=== PATIENT | male | born 1945 | race Caucasian/White ===

== ENCOUNTER 2019-03-23 15:29 | Observation (INO) | payer MEDICARE ==
[~2019-03-23 15:29] MED LIST: ISOVUE-370 76%-LOCM 1 ML ONE
[2019-03-23] MEDS ORDERED: Nitroglycerin 2% Ointment 1 INCH/1 GM Packet ONE (15:51)
[2019-03-23] MEDS ORDERED: Fentanyl 100 MCG/2 ML VIAL ONE (15:52)
[2019-03-23 15:59] LABS: #Basophils 0.1 thou/uL (0.0-0.2); #Eosinphils 0.1 thou/uL (0.0-0.7); #Lymphocytes 1.9 thou/uL (1.20-3.40); #Monocytes 1.1 thou/uL (0.11-0.59); #Neutrophils 7.8 thou/uL (1.40-6.50); %Basophils 0.7 % (0.0-1.0); %Eosinophils 0.9 % (0.0-10.0); %Lymphocytes 17.2 % (21.0-51.0); %Monocytes 10.2 % (0.0-10.0); Hemoglobin 15.1 g/dL (14.0-18.0); Mean Corpuscular HGB CONC 34.2 g/dL (32.0-36.0); Mean Corpuscular Hemoglobin 32.5 pg (27.0-31.0); Mean Corpuscular Volume 95.2 fL (78.0-98.0); Mean Platelet Volume 8.4 fL (7.4-10.4); Platelet Count 219 thou/uL (130-400); RBC Distribution Width 11.3 % (11.5-14.5); Red Blood Cell (RBC) Count 4.64 mill/uL (4.70-6.10); White Blood Cell (WBC) Count 10.9 thou/uL (4.8-10.8)
--- NOTE | 2019-03-23 16:15 | RAD ---
Exam: Chest one view HISTORY:Chest pain Comparison: 07/07/2017 FINDINGS: Lungs: Mild interstitial prominence bilaterally. Superimposed left patchy basilar density. Stable granulomatous cascaded, lateral left mid to lower lung zone. Cardiac silhouette:Stable postoperative appearance Pulmonary vessels: Normal Pleural Spaces: Clear Pneumothorax: None Osseous abnormalities: None of acuity. IMPRESSION: Postoperative chest with bilateral interstitial prominence that could relate to edema or interstitial lung disease. Recommend clinical correlation, and as necessary imaging follow-up may be obtained.
[2019-03-23 16:21] LABS: ALT (SGPT) 9 U/L (8-55); AST (SGOT) 15 U/L (5-34); Albumin 4.2 g/dL (3.4-4.8); Alkaline Phosphatase 88 U/L (40-110); Anion Gap 12 mmol/L (10-20); BUN (Urea Nitrogen) 16 mg/dL (8.4-25.7); Bilirubin, Total 0.8 mg/dL (0.2-1.2); CK (CPK) 30 U/L (30-200); Calc. Creatinine Clearance 0 mL/min (70-130); Calcium 9.9 mg/dL (7.8-10.44); Carbon Dioxide 25 mmol/L (23-31); Chloride 101 mmol/L (98-107); Estimated GFR-MDRD 79; Globulin 3.6 g/dL (2.4-3.5); Glucose 115 mg/dL (83-110); Lipase 13 U/L (8-78); Protein, Total 7.8 g/dL (5.8-8.1); Sodium 134 mmol/L (136-145)
--- NOTE | 2019-03-23 17:15 | CT ---
CT CHEST AND ABDOMEN FOLLOWING AORTOGRAM PROTOCOL WITH CONTRAST: 03/23/19 Axial tomograms obtained with multiplanar reconstruction and 3D postprocessing. Aorta is imaged from the aortic arch through the aortic bifurcation with angio protocol. INDICATIONS: Assess for aortic dissection or aneurysm. Abdominal pain and chest pain. FINDINGS: Thoracic aorta shows atherosclerotic calcification. The ascending aorta is upper normal at 3.5 cm. De scending thoracic aorta mildly ectatic measured at 2.6 cm. There is no evidence of dissection. Abdominal aorta shows atherosclerotic changes with calcification and mild soft plaque in the peripher y. Mild ectasia. The distal abdominal aorta just above the bifurcation measures approximately 2.2 cm. There is no evidence of dissection. There is stenosis at the origin of the celiac artery considered mild by NASCET criteria. There is calcification and evidence of significant stenosis at the origin of the superior mesenteric artery. This degree of stenosis appears greater than 50% and is hemodynamically significant by NASCET criteria. Superior mesenteric artery trunk is opacified. Atherosclerotic calcification seen at the origin of both renal arteries. Mild stenosis at the origin of both renal arteries by NASCET criteria. Aortic bifurcation is patent. Dense calcification is seen in both proximal iliac arteries. No signifi cant stenosis. The lungs show chronic parenchymal change with evidence of early emphysematous change. There is a piyush cified nodule measuring 1.0 cm which is pleural based peripheral left lower lobe. Mediastinum is othe rwise unremarkable. Images through the upper abdomen show unremarkable appearing liver, spleen, and pancreas. The pancrea tic duct is mildly prominent. No pancreatic mass identified. Adrenal glands and kidneys unremarkable. Bowel loops unremarkable as visualized. Degenerative spine c hanges are seen. IMPRESSION: 1. No evidence of thoracic or abdominal aortic dissection. There are atherosclerotic changes as described. 2. Evidence of significant stenosis at the origin of the superior mesenteric artery as described . POS: TPC
[2019-03-23] MEDS ORDERED: Aspirin Chewable 81 MG TAB ONE (17:43)
[2019-03-23] MEDS ORDERED: Ondansetron ODT 4 MG TAB PO PRN (18:42)
[2019-03-23] MEDS ORDERED: Acetaminophen 650 MG Suppository PR PRN (18:42)
[2019-03-23] MEDS ORDERED: Ondansetron PF 4 MG/2 ML Vial IVP PRN (18:42)
[2019-03-23] MEDS ORDERED: Lorazepam 0.5 MG TAB PO PRN (18:48)
--- NOTE | 2019-03-23 18:57 | PDOC.HHP ---
Hospitalist HPI - History of Present Illness left shoulder and chest pain History of Present Illness: Mr. Harman is a 73 year old man who presents with complaints of chest pressure, left shoulder pain and difficulty breathing. He states he first began to have pain on the right lower back earlier today and then it started to radiate up his back. Denies any trauma or injuries. States the pain is now most intense in his left shoulder blade region. He reports feeling stressed and states he has quit smoking and drinking liquor as of two weeks ago. He has been drinking beer over the weekend while watching sports. States the reason he stopped smoking is due to burning sensation in his chest when he does. He has had a cough productive for white sputum, no hemoptysis. No recent fevers or chills. Patient states his BP was elevated, usually does not come down below 170s systolic. He states he started to have pressure in his chest and reports increased discomfort with deep inspiration. He is unsure what time this started. ED Course: He was initially seen in the ED at [facility] and underwent a CT dissection scan due to elevated d-dimer of 2.66, which demonstrated significant stenosis of the SMA. Labs notable for BNP of 251.1 and initial troponin negative. LFTs normal as well as lipase. CK was 30. Chest xray done showed postoperative chest with bilateral insterstitial prominence representing edema or interstitial lung disease. WCC was 10.9, Hgb 15.1, Hct 44.2, Platelets 219. Hospitalist ROS - Review of Systems Constitutional: denies: fever, chills, sweats, weakness, malaise, other Eyes: denies: pain, vision change, conjunctivae inflammation, eyelid inflammation, redness, other ENT: denies: ear pain, ear discharge, nose pain, nose discharge, nose congestion , mouth pain, mouth swelling, throat pain, throat swelling, other Respiratory: reports: cough, shortness of breath Cardiovascular: reports: chest pain Gastrointestinal: denies: nausea, vomiting, abdominal pain, diarrhea, constipation, melena, hematochezia, other Genitourinary: denies: dysuria, frequency, incontinence, hematuria, retention, other Musculoskeletal: reports: shoulder pain (left shoulder blade), back pain. denies: neck pain, arm pain, hand pain, leg pain, foot pain Skin: denies: rash, lesions, shahana, bruising, other Neurological: denies: weakness, numbness, incoordination, change in speech, confusion, seizures, other Hospitalist History - Past Medical History Source: patient Cardiac: reports: CAD, HTN, AR Pulmonary: reports: CVA/TIA/stroke, COPD - Past Surgical History Past Surgical History: reports: CABG, Other (Carotid endarterectomy) - Social History Smoking Status: Smoker, status unknown Alcohol: reports: Heavy Drugs: reports: none Living Situation: Alone - Exam General Appearance: NAD (He does appear anxious and fidgeting) Eye: PERRL, anicteric sclera ENT: normocephalic atraumatic, no oropharyngeal lesions Neck: supple, symmetric, no JVD, no thyromegaly, no lymphadenopathy Heart: RRR, no murmur, no gallops, no rubs Respiratory: CTAB, no wheezes, no rales, no ronchi, normal chest expansion, no tachypnea Gastrointestinal: soft, non-tender, non-distended, normal bowel sounds, no palpable masses, no hepatomegaly Extremities: no cyanosis, no clubbing, no edema Skin: normal turgor, no lesions, no rashes Neurological: cranial nerve grossly intact, normal sensation to touch Musculoskeletal: normal tone, normal strength, no muscle wasting Musculoskeletal - other findings: Tenderness to posterior neck and left shoulder , denies trauma Psychiatric: A&O x 3 (Restless and appears anxious) Hospitalist Results - Labs Result Diagrams: 03/23/19 15:49 03/23/19 15:49 Lab results: WBC 10.9 thou/uL (4.8-10.8) H 03/23/19 15:49 Hgb 15.1 g/dL (14.0-18.0) 03/23/19 15:49 Hct 44.2 % (42.0-52.0) 03/23/19 15:49 MCV 95.2 fL (78.0-98.0) 03/23/19 15:49 Plt Count 219 thou/uL (130-400) 03/23/19 15:49 Neutrophils % 71.0 % (42.0-75.0) 03/23/19 15:49 Sodium 134 mmol/L (136-145) L 03/23/19 15:49 Potassium 4.0 mmol/L (3.5-5.1) 03/23/19 15:49 Chloride 101 mmol/L (98-107) 03/23/19 15:49 Carbon Dioxide 25 mmol/L (23-31) 03/23/19 15:49 BUN 16 mg/dL (8.4-25.7) 03/23/19 15:49 Creatinine 0.94 mg/dL (0.7-1.3) 03/23/19 15:49 Glucose 115 mg/dL (83-110) H 03/23/19 15:49 Calcium 9.9 mg/dL (7.8-10.44) 03/23/19 15:49 Total Bilirubin 0.8 mg/dL (0.2-1.2) 03/23/19 15:49 AST 15 U/L (5-34) 03/23/19 15:49 ALT 9 U/L (8-55) 03/23/19 15:49 Alkaline Phosphatase 88 U/L (40-110) 03/23/19 15:49 Creatine Kinase 30 U/L (30-200) 03/23/19 15:49 Troponin I Less than 0.010 ng/mL (< 0.028) 03/23/19 15:49 B-Natriuretic Peptide 251.1 pg/mL (0-100) H 03/23/19 15:49 Serum Total Protein 7.8 g/dL (5.8-8.1) 03/23/19 15:49 Albumin 4.2 g/dL (3.4-4.8) 03/23/19 15:49 Lipase 13 U/L (8-78) 03/23/19 15:49 - Radiology Interpretation Chest x-ray Status: report reviewed by vt Hospitalist H&P A/P - Problem (1) Chest pain Code(s): R07.9 - CHEST PAIN, UNSPECIFIED Status: Acute (2) Back pain Code(s): M54.9 - DORSALGIA, UNSPECIFIED Status: Acute (3) CAD (coronary artery disease) Code(s): I25.10 - ATHSCL HEART DISEASE OF [place] CORONARY ARTERY W/O ANG PCTRS Status: Chronic (4) COPD (chronic obstructive pulmonary disease) Status: Chronic (5) HTN (hypertension) Code(s): I10 - ESSENTIAL (PRIMARY) HYPERTENSION Status: Chronic Qualifiers: Hypertension type: essential hypertension Qualified Code(s): I10 - Essential (primary) hypertension - Plan Plan: Continue to trend troponins. Will need continuous cardiac monitoring. Elevated d-dimer. Has had contrast for CT dissection done earlier today. Will obtain VQ scan to avoid further contrast and subsequent kidney injury. Consult placed to CV surgery re: SMA stenosis, significant. Consult placed to Palliative care to discuss advanced directives. BNP slightly elevated, last echo was several years ago. Will obtain repeat given SOB. Continue to monitor O2 sats. Monitor BP and resume home meds once verified. Code status unknown at this present time. Patient agreeable to be seen by Palliative Care. Surrogate decision maker: Shraddha Harman, his daugther. Case discussed with Dr. Cruz who agrees with plans as above.
[2019-03-23 19:30] VITALS: BMI 19.4
[2019-03-23 19:58] LABS: Lactic Acid 0.9 mmol/L (0.5-2.2)
[2019-03-23 20:06] LABS: Troponin I 0.025 ng/mL (< 0.028)
[2019-03-23] MEDS ORDERED: Melatonin 3 MG TAB PO PRN (20:21)
--- NOTE | 2019-03-23 20:51 | NM ---
EXAM: NM Lung Vent Perf Imaging PROVIDED CLINICAL HISTORY: Shortness of breath and pleuritic chest pain. Elevated d-dimer. COMPARISON: None FINDINGS: The patient was unable to perform the ventilation portion of the study. As a result, no ventilation i mages were obtained. Only perfusion imaging is performed. There is generalized heterogeneity of uptake of radiotracer seen throughout the lungs bilaterally whi ch is an overall symmetric finding. However, this does limit evaluation for perfusion defects. There is suggestion of a subsegmental defect present at the left lung base with question of additiona l small subsegmental defects bilaterally. However, given the overall heterogeneity and absence of the ventilation portion of the study, this examination is overall indeterminate. IMPRESSION: Indeterminate perfusion imaging as described above. CT angiogram thorax would be helpful for further evaluation if this is able to be performed.
[2019-03-23] MEDS: Acetaminophen 325 MG TAB PO PRN (20:53)
[2019-03-23] MEDS: Famotidine/PF 20 mg/2ml Vial SLOW IVP SCH (20:54)
[2019-03-23] MEDS ORDERED: Lidocaine 5% Patch TD SCH (21:00)
[2019-03-23 22:09] LABS: Bacteria/HPF None Seen HPF (None Seen); Bilirubin Negative (Negative); Blood, Urine Negative (Negative); Clarity Clear (Clear); Glucose, Urine (Dipstick) Normal (Negative); Leukocyte Negative Leu/uL (Negative); Nitrite Negative (Negative); Protein, Urine (Dipstick) 70 mg/dL (Neg-Trace); RBC/HPF 0-3 HPF (0-3); Squamous Epithelial 0-3 HPF (0-3)
[2019-03-23 22:11] LABS: Urine Culture Reflex Yes Yes
[2019-03-23 22:25] LABS: Amphetamine Detected (NotDetected); Barbiturates Screen Not Detected (NotDetected); Benzodiazepine Screen Detected (NotDetected); Cocaine Metabolite Screen Not Detected (NotDetected); Medtox Control Line Valid? VALID (VALID); Medtox Reader # READER 1; Methadone Not Detected (NotDetected); Methamphetamine Not Detected (NotDetected); Opiate Screen Not Detected (NotDetected); Oxycodone Screen Not Detected (NotDetected); Phencyclidine (PCP) Not Detected (NotDetected); THC/Cannabinoid Screen Detected (NotDetected); Tricyclic Screen Not Detected (NotDetected)
[2019-03-23 22:53] LABS: Troponin I 0.018 ng/mL (< 0.028)
[2019-03-24] MEDS: hydrALAZINE 20 MG/ML VIAL SLOW IVP PRN ×2 (03:17→11:44)
[2019-03-24 05:20] LABS: #Basophils 0.1 thou/uL (0.0-0.2); #Eosinphils 0.2 thou/uL (0.0-0.7); #Lymphocytes 2.2 thou/uL (1.20-3.40); #Monocytes 0.9 thou/uL (0.11-0.59); #Neutrophils 4.3 thou/uL (1.40-6.50); %Basophils 1.3 % (0.0-1.0); %Eosinophils 2.6 % (0.0-10.0); %Lymphocytes 29.3 % (21.0-51.0); %Monocytes 11.2 % (0.0-10.0); %Neutrophils 55.6 % (42.0-75.0); Hemoglobin 13.3 g/dL (14.0-18.0); Mean Corpuscular HGB CONC 33.9 g/dL (32.0-36.0); Mean Corpuscular Hemoglobin 32.6 pg (27.0-31.0); Mean Platelet Volume 8.7 fL (7.4-10.4); Platelet Count 197 thou/uL (130-400); RBC Distribution Width 11.5 % (11.5-14.5); Red Blood Cell (RBC) Count 4.07 mill/uL (4.70-6.10); White Blood Cell (WBC) Count 7.7 thou/uL (4.8-10.8)
[2019-03-24 05:33] LABS: Anion Gap 11 mmol/L (10-20); BUN (Urea Nitrogen) 24 mg/dL (8.4-25.7); Calc. Creatinine Clearance 57 mL/min (70-130); Calcium 9.4 mg/dL (7.8-10.44); Carbon Dioxide 27 mmol/L (23-31); Chloride 105 mmol/L (98-107); Estimated GFR-MDRD 77; Glucose 94 mg/dL (83-110); Potassium 4.4 mmol/L (3.5-5.1); Sodium 139 mmol/L (136-145)
[2019-03-24] MEDS: Acetaminophen 325 MG TAB PO PRN (07:43)
[2019-03-24] MEDS: Famotidine/PF 20 mg/2ml Vial SLOW IVP SCH (07:43)
[2019-03-24] MEDS ORDERED: Carvedilol 25 MG TAB PO SCH (08:00)
[2019-03-24] MEDS ORDERED: Aspirin 325 mg Enteric Coated Tablet PO SCH (09:00)
[2019-03-24] MEDS ORDERED: Lidocaine Patch Removal 1 EACH TOP SCH (09:00)
[2019-03-24] MEDS ORDERED: Lisinopril 20 MG TAB PO SCH (09:00)
[2019-03-24] MEDS ORDERED: DULoxetine 30 MG CAP PO SCH (09:00)
[2019-03-24 16:35] VITALS: BP 162/78; TEMP 98
--- NOTE | 2019-03-24 19:23 | DIS ---
DATE OF ADMISSION: 03/23/2019 DATE OF DISCHARGE: 03/24/2019 DISCHARGE DISPOSITION: To home. PRIMARY DISCHARGE DIAGNOSES: Atypical chest pain, neck pain, and back pain. 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 PROCEDURES DONE DURING HOSPITALIZATION: The patient has had CT dissection protocol done, which showed no evidence of thoracic or abdominal aortic dissection. There are atherosclerotic changes seen. There is significant stenosis at the origin of superior mesenteric artery, which appears to be greater than 50% per NASCET criteria. V/Q scan with perfusion imaging was indeterminate. Echo with 2D Doppler showed EF of 55% to 60%. There is grade 1/3 diastolic dysfunction. H and H 13 and 39, platelet count 197. BUN 24, creatinine 0.9. Troponin x3 negative. BNP 251. Liver enzymes within normal limits. Albumin 4.2. Urine drug screen was positive for amphetamine, benzodiazepines, and cannabinoids. Urine culture, no growth. DISCHARGE MEDICATIONS: 1. Aspirin 81 mg p.o. daily. 2. Plavix 75 mg p.o. daily. 3. Lipitor 40 mg p.o. daily. 4. Coreg 12.5 mg twice daily. 5. Lidocaine transdermal patch daily. 6. Lisinopril 20 mg daily. 7. Cymbalta 30 mg p.o. daily. 8. Albuterol inhaler q.6 hourly p.r.n. ALLERGIES: NO KNOWN DRUG ALLERGIES. DISCHARGE PLAN: The patient to follow up with primary care physician in 1 week BRIEF COURSE DURING HOSPITALIZATION: The patient initially came in with complaints of chest pain, left shoulder pain, back pain, difficulty breathing. He also had lower back pain. In view of these nonspecific complaints, the patient has had CT dissection protocol done, which did not reveal any aortic dissection, but incidentally showed more than 50% SMA stenosis that is superior mesenteric artery stenosis. The patient did not have any bleeding per rectum. He was tolerating oral solid diet. His three sets of troponin were negative. He has remained hemodynamically stable during his stay here. He has had hypertensive urgency on arrival, which resolved. It is unclear if the patient is compliant with his medication. He was placed on lower dose of aspirin, Plavix, and Lipitor 40 mg in view of atherosclerotic disease. He was also given a prescription for lidocaine patch. He needs to see his new primary care physician, who has replaced Dr. Nahomi Barber in 1 week. He was counseled regarding substance use. Please note, I have seen and examined the patient on the day of discharge. His echo showed normal ejection fraction. Job ID: [id number] MTDD
--- NOTE | 2019-03-24 22:15 | CON ---
DATE OF CONSULTATION: 03/24/2019 REQUESTING PROVIDER: SONNY Beard. CHIEF COMPLAINT: Burning right flank and back pain and shortness of breath. HISTORY OF PRESENT ILLNESS: The patient is a 73-year-old long-term smoker with diffuse vascular disease. He only very recently quit smoking and even quit drinking, because he was so desperate to find relief from the burning pain in his right flank and back and shortness of breath. Over the course of the last 2 weeks, he has had some subjective fever, but has not taken his temperature. The pain started primarily at the right flank that he interpreted as a kidney infection had progressed to where it went all the way up to the top of his shoulder and seemingly even into his neck. It was burning in quality, worse when he breathes, and he was getting shorter and shorter of breath reminiscent of how he felt when he has had previous episodes of pneumonia. He had made an appointment to see his primary care physician. As the shortness of breath got so bad, he decided come to the emergency room instead. Chest x-ray showed diffuse prominent parenchymal markings that are certainly far more prominent than they were about a year and a half ago. There is no focality to it as there had been about 3 years ago when he actually required ventilatory support. A CT scan with a dissection protocol was performed, looking for any evidence of dissection, none was seen, but incidental disease in his mesenteric vessels was identified. Opacification of the pulmonary vasculature on that scan was reasonably good, but not being done with PE protocol. V/Q scan was attempted while there were no gross abnormalities on the perfusion portion of it. The patient was not able to adequately cooperate with the testing to do the ventilation portion of the scan. The patient had a couple of days during this illness where he simply had no appetite, but otherwise he has been able to the eat without any postprandial abdominal pain, nausea, or vomiting and he has not had any recent weight loss. PAST MEDICAL HISTORY: Significant for carotid stenosis, hypertension, COPD, coronary artery disease, and chronic osteomyelitis. PAST SURGICAL HISTORY: Significant for coronary artery bypass grafting in March of 2016, right carotid endarterectomy in December of 2012 and right below-knee amputation for chronic osteomyelitis in May of 2017. HOME MEDICATIONS: Include: 1. Aspirin. 2. Plavix. 3. Coreg. 4. Lisinopril. 5. Lipitor. 6. Cymbalta. 7. Proventil. ALLERGIES: HE DENIES ANY MEDICAL ALLERGIES. THE PATIENT HAD BEEN A 1-2 PACK A DAY SMOKER SINCE HIS EARLY 20S AND ONLY RECENTLY QUIT. HE HAD DRUNK HEAVILY ON WEEKENDS, BUT RECENTLY QUIT. FAMILY HISTORY: Significant for both parents dying of cancer. REVIEW OF SYSTEMS: Negative for any eye, speech, facial, or extremity symptoms consistent with TIAs. It is positive for his shortness of breath and burning right flank and back pain. Positive for subjective fever. Negative for any abdominal pain, nausea, vomiting. Negative for any weight loss. PHYSICAL EXAMINATION: GENERAL: He appears older than his stated age. VITAL SIGNS: Heart rate is 80, blood is pressure 162/78, temperature is 98, his T-max has been 98.1, room air O2 saturations are 97-98 percent. NECK: He has no JVD. Well-healed surgical scar in the right neck consistent with right carotid endarterectomy. CHEST: Well-healed surgical scar in his chest consistent with sternotomy, coronary artery bypass grafting. Regular rate and rhythm. LUNGS: He has distant breath sounds. ABDOMEN: Soft and nontender. EXTREMITIES: He has had a right below-knee amputation. LABORATORY DATA: Shows on admission, white count of 10.9, hemoglobin 15.1, hematocrit 95.2, platelets 219,000. His electrolytes were notable only for minimally low sodium at 134, CO2 is 25, glucose 115, BUN 16, creatinine 0.94. LFTs were normal. Albumin 4.2, BNP was 251.1. Troponins were all normal. Lactate was 0.9. Urinalysis showed 4-6 white blood cells, no bacteria. Specific gravity was greater than 1.060. Urine culture has been no growth so far. His chest x-ray shows a narrow mediastinum with sharp aortic knob and ectatic aorta, borderline cardiomegaly, depressed diaphragms. His CTA shows no aortic dissection. It shows scattered atherosclerotic disease in his aorta. There is some luminal irregularity in the celiac axis, which probably constitutes somewhere on the order of 10% or 20% stenosis. There is a plaque and rather large SMA that constitutes a 40% or 50% stenosis. He has a reasonably good sized inferior mesenteric with apparent collaterals coming off it. IMPRESSION AND RECOMMENDATIONS: The patient has no signs or symptoms of mesenteric vascular insufficiency either chronic or acute and has no findings on his CT scan to suggest it. This should not need any further workup surveillance or treatment. Job ID: [id number] MTDD
== END 2019-03-24 17:43 | disposition home or self-care (01) ==
LOC: ERS 15:29 → 2SW 17:40
PROVIDERS: ADMIT Internal Medicine; ATTEND Internal Medicine
DX: R07.89 Other chest pain (principal); I16.0 Hypertensive urgency; I25.10 Atherosclerotic heart disease of native coronary artery without angina pectoris; K55.1 Chronic vascular disorders of intestine; I10 Essential (primary) hypertension; J44.9 Chronic obstructive pulmonary disease, unspecified; M54.9 Dorsalgia, unspecified; M54.2 Cervicalgia; F12.10 Cannabis abuse, uncomplicated; I25.2 Old myocardial infarction; Z79.02 Long term (current) use of antithrombotics/antiplatelets; Z79.82 Long term (current) use of aspirin; Z79.899 Other long term (current) drug therapy; Z86.73 Personal history of transient ischemic attack (TIA), and cerebral infarction without residual deficits; Z87.891 Personal history of nicotine dependence; Z89.511 Acquired absence of right leg below knee; Z91.19 Patient's noncompliance with other medical treatment and regimen; Z95.1 Presence of aortocoronary bypass graft
CPT/HCPCS: 71045; 71275; 72191; 74175; 78582; 80048; 80053; 80306; 81001; 82550; 83605; 83690; 83880; 84484 ×2; 85025 ×2; 85379; 87086; 93005; 93306; 94640 ×2; 96361; 96374; 96375 ×2; 96376; 99285; A9540; A9558; G0378 ×3; 36415; J0360; J3010; J7620; Q9966; S0028

== ENCOUNTER 2019-04-14 13:13 | Outpatient (CLI) | payer MEDICARE ==
--- NOTE | 2019-04-20 18:41 | ULT ---
LOWER EXTREMITY ARTERIAL EVALUATION USING DOPPLER WAVEFORM ANALYSIS AND SEGMENTAL LIMB PRESSURES 04/14/19 The patient has had previous amputation of the right leg. Examination of the right femoral artery reveals mildly diminished waveform with significant diminishe d waveform at the popliteal level. Left lower extremity demonstrates an abnormal left femoral, popliteal, and pedal waveforms with an an kle-arm index of 0.72 and toe-brachial index of 0.47. ASSESSMENT: This study is suggestive of multilevel peripheral vascular disease.
== END 2019-04-14 13:14 | disposition home or self-care (01) ==
LOC: ULT 13:13
PROVIDERS: ATTEND Family Medicine
DX: I73.9 Peripheral vascular disease, unspecified (principal); R09.89 Other specified symptoms and signs involving the circulatory and respiratory systems; I25.810 Atherosclerosis of coronary artery bypass graft(s) without angina pectoris
CPT/HCPCS: 93922

== ENCOUNTER 2019-06-03 14:24 | Outpatient (CLI) | payer MEDICARE, OTHER ==
--- NOTE | 2019-06-03 14:43 | RAD ---
XR Chest Pa Lat STANDARD HISTORY: Emphysema, cough COMPARISON: 03/23/2019 FINDINGS: The heart size is normal. Changes of median sternotomy are again seen. The aorta is tortuou s. The lungs are well expanded without focal areas of consolidation, pneumothorax or pleural effusions. There are degenerative changes in the spine. IMPRESSION: No radiographic evidence of acute cardiopulmonary process.
== END 2019-06-03 14:25 | disposition home or self-care (01) ==
LOC: BICRAD 14:24
PROVIDERS: ATTEND Family Medicine
DX: J43.8 Other emphysema (principal)
CPT/HCPCS: 71046

== ENCOUNTER 2019-08-09 08:25 | Outpatient (CLI) | payer MEDICARE, OTHER ==
--- NOTE | 2019-08-09 08:51 | ULT ---
Sonogram transabdominal aorta HISTORY: Screening for aneurysm. FINDINGS: Good color and spectral Doppler flow within the abdominal aorta. No adjacent fluid collecti ons. Proximal abdominal aorta is 2.5 cm AP diameter, mid abdominal aorta 1.8 cm, distal abdominal aorta 1. 2 cm. Echogenic plaque is apparent along the aortic wall. IMPRESSION: No evidence of abdominal aortic aneurysm. Atherosclerosis.
== END 2019-08-09 08:26 | disposition home or self-care (01) ==
LOC: BICULT 08:25
PROVIDERS: ATTEND Family Medicine
DX: Z13.6 Encounter for screening for cardiovascular disorders (principal); I70.0 Atherosclerosis of aorta
CPT/HCPCS: 76775

== ENCOUNTER 2020-03-30 15:15 | Outpatient (CLI) | payer MEDICARE ==
--- NOTE | 2020-03-30 15:53 | CT ---
EXAM: CT Pulmonary Lung Scan PROVIDED CLINICAL HISTORY: Tobacco abuse. Patient with history of 1 pack per day smoking for 53 years. History of COPD. COMPARISON: CTA thorax on 03/23/2019. FINDINGS: Emphysematous changes are again seen throughout the lungs bilaterally. There is linear area of scarri ng with associated calcification seen in the anterior aspect of the left lower lobe with minimal linear scar versus atelectasis at the right lung base. Additional scattered minimal peripheral linear densities are seen likely due to mild chronic lung changes. Minimal subtle linear densities are seen in the superior segment of the right lower lobe which could be related to mild scarring. A tiny 4 mm pulmonary nodule is seen in the peripheral aspect of the right upper lobe with a 4 mm pul monary nodule in the right upper lobe adjacent to the superior aspect of the major fissure. No pleural effusion is seen. No filling defects are seen in the large airways. There is evidence of prior granulomatous disease with calcified mediastinal and left hilar lymph node s. Mildly prominent precarinal lymph node is again seen measuring 11 mm in short axis dimension. Lack of intravenous contrast limits sensitivity for evaluation of the vascular structures. However, t here are dense vascular calcifications seen in the coronary arteries and involving the thoracic aorta. Postoperative changes related to CABG are seen. Limited evaluation of the upper abdomen due to technique of the exam and lack of IV contrast. However , no gross abnormalities are seen in the upper abdomen. Degenerative changes are seen in the thoracic spine. IMPRESSION: 1. Lung RADS category 2, tiny pulmonary nodules right upper lobe. Continued annual screening with low -dose CT scan thorax in 12 months is recommended. 2. Chronic lung changes. 3. Dense vascular calcifications.
== END 2020-03-30 15:16 | disposition home or self-care (01) ==
LOC: BICCT 15:15
PROVIDERS: ATTEND Family Medicine
DX: Z12.2 Encounter for screening for malignant neoplasm of respiratory organs (principal); F17.210 Nicotine dependence, cigarettes, uncomplicated; I25.10 Atherosclerotic heart disease of native coronary artery without angina pectoris; I70.0 Atherosclerosis of aorta; R91.8 Other nonspecific abnormal finding of lung field
CPT/HCPCS: G0297

== ENCOUNTER 2021-05-17 08:13 | Outpatient (CLI) | payer MEDICARE | END 2021-05-17 08:14 | disposition home or self-care (01) | LOC: BICULT 08:13 | PROVIDERS: ATTEND Family Medicine | DX: Z12.2 Encounter for screening for malignant neoplasm of respiratory organs (principal); F17.210 Nicotine dependence, cigarettes, uncomplicated; Z13.6 Encounter for screening for cardiovascular disorders; I70.90 Unspecified atherosclerosis | CPT/HCPCS: 71271; 76775 ==

== ENCOUNTER 2021-12-05 10:00 | Outpatient (CLI) | payer MEDICARE | END 2021-12-05 10:01 | disposition home or self-care (01) | LOC: BICRAD 10:00 | PROVIDERS: ATTEND Family Medicine | DX: M54.42 Lumbago with sciatica, left side (principal); M47.816 Spondylosis without myelopathy or radiculopathy, lumbar region; M41.9 Scoliosis, unspecified | CPT/HCPCS: 72100 ==

== ENCOUNTER 2022-01-03 10:32 | Outpatient (CLI) | payer OTHER | END 2022-01-03 10:33 | disposition home or self-care (01) | LOC: BICCT 10:32 | PROVIDERS: ATTEND Family Medicine | DX: S09.90XA Unspecified injury of head, initial encounter (principal) | CPT/HCPCS: 70450 ==

== ENCOUNTER 2022-01-16 10:46 | Outpatient (CLI) | payer OTHER | END 2022-01-16 10:47 | disposition home or self-care (01) | LOC: MRI 10:46 | PROVIDERS: ATTEND Family Medicine | DX: M51.16 Intervertebral disc disorders with radiculopathy, lumbar region (principal); M48.061 Spinal stenosis, lumbar region without neurogenic claudication | CPT/HCPCS: 72148 ==

== ENCOUNTER 2022-04-16 09:15 | Emergency (ER) | payer OTHER ==
[2022-04-16 11:14] LABS: Mean Corpuscular HGB CONC 32.8 g/dL (32.0-36.0); Mean Corpuscular Hemoglobin 32.8 pg (27.0-31.0); Mean Corpuscular Volume 99.9 fl (78.0-98.0); Mean Platelet Volume 8.4 fL (7.4-10.4); Platelet Count 176 10x3/uL (130-400); RBC Distribution Width 11.8 % (11.5-14.5); Red Blood Cell (RBC) Count 4.57 mill/uL (4.70-6.10); White Blood Cell (WBC) Count 5.2 10x3/uL (4.8-10.8)
[2022-04-16 11:30] LABS: ALT (SGPT) 20 U/L (8-55); AST (SGOT) 33 U/L (5-34); Albumin 3.9 g/dL (3.4-4.8); Alkaline Phosphatase 68 U/L (40-110); Anion Gap 11 mmol/L (10-20); BUN (Urea Nitrogen) 21 mg/dL (8.4-25.7); Bilirubin, Total 0.5 mg/dL (0.2-1.2); Calc. Creatinine Clearance 0 mL/min (70-130); Calcium 9.5 mg/dL (7.8-10.44); Carbon Dioxide 28 mmol/L (23-31); Chloride 100 mmol/L (98-107); Estimated GFR 72; Globulin 3.4 g/dL (2.4-3.5); Glucose 138 mg/dL (83-110); Lipase 39 U/L (8-78); Potassium 4.2 mmol/L (3.5-5.1); Protein, Total 7.3 g/dL (5.8-8.1); Sodium 135 mmol/L (136-145)
[2022-04-16] MEDS ORDERED: predniSONE 20 MG TAB ONE (11:43)
[2022-04-16 12:06] LABS: Band 29 % (5-11); Eosinophils 1 % (0-10); Lymphocytes 23 % (21-51); MDiff Complete? YES; Monocytes 13 % (0-10); Neutrophil 34 % (42-75); Platelet Morphology Comment Appears Adequate; RBC Morphology Normal
[2022-04-16 12:30] LABS: SARS-CoV-2 NAA Rapid Test Not Detected (NotDetected)
== END 2022-04-16 12:59 | disposition home or self-care (01) ==
LOC: ERS 09:15
DX: J44.1 Chronic obstructive pulmonary disease with (acute) exacerbation (principal); J10.1 Influenza due to other identified influenza virus with other respiratory manifestations; Z20.822 Contact with and (suspected) exposure to COVID-19; I10 Essential (primary) hypertension; F17.210 Nicotine dependence, cigarettes, uncomplicated; Z79.899 Other long term (current) drug therapy; Z79.82 Long term (current) use of aspirin
CPT/HCPCS: 0240U; 71046; 80053; 83690; 83880; 84484; 85025; 93005; 36415; J7512; J7620

== ENCOUNTER 2023-08-07 10:26 | Outpatient (CLI) | payer MEDICARE | END 2023-08-07 10:27 | disposition home or self-care (01) | LOC: BICRAD 10:26 | PROVIDERS: ATTEND Family Medicine | DX: J43.2 Centrilobular emphysema (principal) | CPT/HCPCS: 71046 ==

== ENCOUNTER 2024-06-16 15:49 | Emergency (ER) | payer MEDICARE, OTHER ==
[2024-06-16 17:06] LABS: #Basophils 0.06 10x3/uL (0.0-0.2); %Basophils 0.9 % (0.0-1.0); %Eosinophils 8.6 % (0.0-10.0); %Lymphocytes 23.7 % (21.0-51.0); %Monocytes 10.1 % (0.0-10.0); %Neutrophils 56.5 % (42.0-75.0); Hematocrit 38.2 % (42.0-52.0); Hemoglobin 12.8 g/dL (14.0-18.0); Mean Corpuscular HGB CONC 33.5 g/dL (32.0-36.0); Mean Corpuscular Hemoglobin 31.8 pg (27.0-31.0); Mean Corpuscular Volume 94.8 fL (78.0-98.0); Mean Platelet Volume 11.2 fL (7.4-10.4); Platelet Count 180 10x3/uL (130-400); RBC Distribution Width 12.8 % (11.5-14.5); Red Blood Cell (RBC) Count 4.03 mill/uL (4.70-6.10)
[2024-06-16] MEDS ORDERED: Ipratropium/Albuterol 3 ML NEB ONE (17:18)
[2024-06-16 17:30] LABS: ALT (SGPT) 22 U/L (8-55); AST (SGOT) 30 U/L (5-34); Albumin 3.4 g/dL (3.4-4.8); Alkaline Phosphatase 87 U/L (40-110); Anion Gap 10 mmol/L (10-20); BUN (Urea Nitrogen) 31 mg/dL (8.4-25.7); Bilirubin, Total 0.5 mg/dL (0.2-1.2); Calc. Creatinine Clearance 0 mL/min (70-130); Calcium 9.1 mg/dL (7.8-10.44); Carbon Dioxide 28 mmol/L (23-31); Chloride 106 mmol/L (98-107); Estimated GFR 55; Globulin 3.8 g/dL (2.4-3.5); Glucose 84 mg/dL (83-110); Magnesium 2.1 mg/dL (1.6-2.6); Potassium 4.2 mmol/L (3.5-5.1); Protein, Total 7.2 g/dL (5.8-8.1); Sodium 140 mmol/L (136-145)
[2024-06-16 17:35] LABS: Troponin I 0.028 ng/mL (< 0.028)
[2024-06-16] MEDS ORDERED: methylPREDNISolone Sod Succ/PF 125 MG/2 ML VIAL ONE (17:53)
[2024-06-16] MEDS ORDERED: Aspirin Chewable 81 MG TAB ONE (17:53)
[2024-06-16] MEDS ORDERED: hydrALAZINE 20 MG/ML VIAL ONE (17:53)
== END 2024-06-16 20:45 | disposition home or self-care (01) ==
LOC: ERS 15:49
DX: J44.1 Chronic obstructive pulmonary disease with (acute) exacerbation (principal)
CPT/HCPCS: 36415; 71045; 80053; 83735; 83880; 84484; 85025; 93005; 96374; 96375; J0360; J2919; J7620